=== PATIENT | male | born 1960 | race Caucasian/White ===

== ENCOUNTER 2022-11-23 11:40 | Emergency (ER) | payer OTHER, SELFPAY ==
[2022-11-23 11:46] VITALS: BP 168/90; PULSE 54; RESP 20; TEMP 36.7; O2SAT 98
--- NOTE | 2022-11-23 11:53 | ED.GENADULT ---
HPI - General Adult General Chief complaint: Unspecified Stated complaint: blood pressure Time Seen by Provider: 11/23/22 11:45 Source: patient and RN notes reviewed History of Present Illness HPI narrative: Patient is a 62-year-old male who presents to urgent care with complaints of high blood pressure. Patient did speak to the nurse telling her that he ?does not take his blood pressure medications consistently . Patient states that he is now having some symptoms of ?flushing? and was advised by his doctor's office to come to the urgent care. Patient is currently asymptomatic and denies dizziness, lightheadedness, chest pain or shortness of breath. Patient states he did take his medications today and his doctor has been tweaking them recently. States that he is supposed to see his primary this afternoon. Patient states that the blood pressure in the facility is ?lower than his usual high blood pressure at home?. No other acute complaints. No acute distress noted. Patient aware of the plan of care. Some parts of this dictation were generated by voice recognition software and may contain typographical and/or grammatical inaccuracies. Related Data Home Medications Medication Instructions Recorded Confirmed alprazolam 0.5 mg tablet (Xanax) 0.5 mg PO TID PRN Pain (Scale 11/23/22 11/23/22 Score 4-6) amlodipine DAILY 11/23/22 aspirin 81 mg chewable tablet DAILY 11/23/22 atorvastatin 40 mg tablet 40 mg PO DAILY 11/23/22 11/23/22 carvedilol 25 mg tablet (Coreg) 25 mg PO BID 11/23/22 11/23/22 ezetimibe 10 mg tablet (Zetia) 10 mg PO DAILY 11/23/22 11/23/22 losartan 50 mg tablet 50 mg PO DAILY 11/23/22 11/23/22 naloxone 0.02 mg/mL injection mg 11/23/22 solution oxycodone-acetaminophen 7.5 mg-325 1 tablet PO Q4H PRN Pain 11/23/22 11/23/22 mg tablet phenytoin 100 mg/4 mL oral 100 mg PO TID 11/23/22 11/23/22 suspension Allergies Allergy/AdvReac Type Severity Reaction Status Date / Time No Known Allergies Allergy Verified 11/23/22 11:48 Review of Systems Review of Systems: CONSTITUTIONAL: Denies fever, chills, or sweats. EYES: Denies visual changes, redness, or discharge. ENT: Denies rhinorrhea, congestion, sore throat, or otalgia. CARDIOVASCULAR: Denies chest pain, palpitations, or edema. reports high blood pressure RESPIRATORY: Denies cough or dyspnea. GASTROINTESTINAL: Denies abdominal pain, nausea, vomiting, or diarrhea. GENITOURINARY: Denies dysuria or hematuria. SKIN: Denies rash or itching. MUSCULOSKELETAL: Denies back pain, joint pain, or myalgia. NEUROLOGIC: Denies headache, numbness, or weakness. All other systems reviewed are negative, except as documented in HPI. PMFSH Comments At the time of my signature, I reviewed and agree with the nursing past medical, surgical, social, and family history. There is no relevant family history pertinent to the patient complaint. Exam Narrative: GENERAL: This is a well-nourished, well-developed patient, in no apparent distress. HEAD: normocephalic, atraumatic. EYES: PERRL. Sclera clear/white. Vision is grossly intact. EARS: External ears normal NOSE: External nose normal with no obvious nasal discharge, nares without redness, no rhinorrhea. THROAT: Mucous membranes moist NECK: Neck supple CARDIOVASCULAR: Regular rate and rhythm RESPIRATORY: Clear to auscultation. Breath sounds equal bilaterally. No wheezes, rales, or rhonchi. SKIN: warm, intact with no suspicious lesions or rash, good texture and turgor. NEURO: awake, alert, and oriented to person, place and time. There were no obvious focal neurologic abnormalities. EXTREMITIES: No clubbing, cyanosis, or edema. Course Course Level of Care: Express Care Visit Vital Signs Vital signs: Vital Signs Temperature 98.0 F 11/23/22 11:46 Pulse Rate 54 L 11/23/22 11:46 Respiratory Rate 20 11/23/22 11:46 Blood Pressure 168/90 H 11/23/22 11:46 Pulse Oximetry 98 11/23/22 11:46 Oxygen Delivery Room A
== END 2022-11-23 12:16 | disposition home or self-care (01) ==
PROVIDERS: Emergency Provider Nurse Practitioner Family; PCP Family Medicine
DX: I10 Essential (primary) hypertension (principal); E78.00 Pure hypercholesterolemia, unspecified
CPT/HCPCS: 99211; G0463